=== PATIENT | female | born 1980 | race Asian ===

== ENCOUNTER 2018-02-12 13:21 | Emergency (ER) | payer SELFPAY ==
[2018-02-12 14:17] LABS: BHCG - Serum POSITIVE (NEGATIVE); Pregs Control Background? CLEAR/WHITE (CLR/WHITE); Pregs Control Bar Appear? YES (CONTROL BAR)
[2018-02-12 14:34] LABS: #Lymphocytes 0.7 thou/uL (1.20-3.40); #Monocytes 0.2 thou/uL (0.11-0.59); %Basophils 0.5 % (0.0-1.0); %Eosinophils 0.4 % (0.0-10.0); %Lymphocytes 17.3 % (21.0-51.0); %Monocytes 4.8 % (0.0-10.0); %Neutrophils 76.9 % (42.0-75.0); Hemoglobin 13.9 g/dL (12.0-16.0); Mean Corpuscular HGB CONC 33.7 g/dL (32.0-36.0); Mean Corpuscular Hemoglobin 30.8 pg (27.0-31.0); Mean Corpuscular Volume 91.3 fL (78.0-98.0); Mean Platelet Volume 7.3 fL (7.4-10.4); Platelet Count 190 thou/uL (130-400); RBC Distribution Width 11.9 % (11.5-14.5); Red Blood Cell (RBC) Count 4.51 mill/uL (4.20-5.40)
[2018-02-12 14:43] LABS: ALT (SGPT) 18 U/L (8-55); AST (SGOT) 18 U/L (5-34); Albumin 4.5 g/dL (3.5-5.0); Alkaline Phosphatase 54 U/L (40-150); Anion Gap 11 mmol/L (10-20); BUN (Urea Nitrogen) 9 mg/dL (7.0-18.7); Calc. Creatinine Clearance 0 mL/min (70-130); Calcium 9.7 mg/dL (7.8-10.44); Carbon Dioxide 26 mmol/L (22-29); Chloride 106 mmol/L (98-107); Estimated GFR-MDRD Greater than 90; Globulin 3.2 g/dL (2.4-3.5); Glucose 99 mg/dL (70-105); Potassium 4.2 mmol/L (3.5-5.1); Protein, Total 7.7 g/dL (6.0-8.3); Sodium 139 mmol/L (136-145)
--- NOTE | 2018-02-12 16:04 | ULT ---
PELVIC ULTRASOUND: DATE: 02/12/2018. HISTORY: The patient reports positive test 2 weeks ago. Vaginal spotting, pelvic pain. FINDINGS: Multiple transabdominal and endovaginal sonographic images of the pelvis are obtained. The uterus demonstrates a normal sonographic appearance measuring 8.5 cm x 4.8 cm x 5.8 cm. The endo metrial stripe thickness is 1.6 cm. There is a tiny fluid collection seen within the endometrial can al which may potentially represent a gestational sac. The gestational sac diameter is 0.48 cm, which would correspond to gestational age by ultrasound of 5 weeks and 2 days. No yolk sac or pole are visualized to confirm this represents an intrauterine gestation. The right ovary has a grossly normal sonographic appearance and measures 2.8 cm x 2.7 cm x 2 cm. The left ovary is enlarged measuring 6.4 cm x 4.7 cm x 5.1 cm, an there is a large 6.1 cm anechoic cy stic structure seen in the left ovary demonstrating characteristics most compatible with a large ovar sada cyst. Doppler evaluation of each ovary with spectral analysis and color flow evaluation demonstrates arteri al flow in each ovary. Some of the images do demonstrate a small hypoechoic area measuring 7 mm x 3 mm in a subchorionic location lower aspect of the uterus which could potentially represent a tiny sub chorionic hemorrhage. There is a small amount of free fluid in the pelvis. IMPRESSION: 1. Large left ovarian cyst measuring 6.1 cm. Followup ultrasound examination in 6-12 weeks is roxy vossd. 2. Arterial flow is documented in the bilateral ovaries. 3. Fluid collection endometrial canal without evidence of a pole or yolk sac. However, this c ould potentially represent a very early intrauterine gestation with a gestational age of 5 weeks and 2 days by measurement of the mean sac diameter. However, pseudogestational sac related to ectopic pr egnancy could not be excluded based on this exam. Correlation with quantitative beta HCG level is re commended, and followup ultrasound is also suggested. 4. Suggestion of tiny subchorionic hemorrhage. Followup evaluation is recommended. POS: LETA
[2018-02-14 19:23] LABS: Chlamydia by PCR Not Detected (NotDetected); GC by PCR Not Detected (NotDetected)
== END 2018-02-12 16:44 | disposition home or self-care (01) ==
LOC: ERS 13:21
DX: O20.0 Threatened abortion (principal); O34.81 Maternal care for other abnormalities of pelvic organs, first trimester; N83.202 Unspecified ovarian cyst, left side; Z3A.01 Less than 8 weeks gestation of pregnancy
CPT/HCPCS: 36415; 76856; 80053; 84702; 84703; 85025; 86900; 86901; 87480; 87491; 87510; 87591; 87660

== ENCOUNTER 2018-02-14 16:45 | Emergency (ER) | payer OTHER, SELFPAY | END 2018-02-14 19:37 | disposition home or self-care (01) | LOC: ERS 16:45 | DX: O03.9 Complete or unspecified spontaneous abortion without complication (principal) | CPT/HCPCS: 36416; 84702; 99283 ==